=== PATIENT | female | born 1990 | race Caucasian/White ===

== ENCOUNTER 2018-03-29 15:02 | Outpatient (CLI) | payer OTHER ==
--- NOTE | 2018-03-30 02:43 | CT Report ---
Reason: LEFT LOWER QUADRANT ABD PAIN Procedure Date: 03/29/2018 Accession Number: [id number] / [id number] Procedure: CT - Abdomen/Pelvis W/O CPT Code: FULL RESULT: EXAM: CT ABDOMEN AND PELVIS (CT KUB) EXAM DATE: 03/29/2018 05:26 PM. CLINICAL HISTORY: Left lower quadrant abdominal pain. COMPARISONS: None. TECHNIQUE: Routine axial helical CT imaging was performed through the abdomen and pelvis without IV contrast. Reconstructions: Coronal and sagittal. In accordance with CT protocol optimization, one or more of the following dose reduction techniques were utilized for this exam: automated exposure control, adjustment of mA and/or KV based on patient size, or use of iterative reconstructive technique. FINDINGS: Lung Bases: Unremarkable. Right Kidney/Ureter: No stones, hydronephrosis, or hydroureter. No perinephric fat stranding. Left Kidney/Ureter: No stones, hydronephrosis, or hydroureter. No perinephric fat stranding. Other Solid Organs: Noncontrast images of the solid organs are grossly unremarkable. Gallbladder/Bile Ducts: Unremarkable. Peritoneal Cavity: No free fluid, free air or yahaira adenopathy. Bowel is grossly unremarkable post-appendectomy. Moderate stool burden is noted. Pelvic Organs: No bladder stones or wall thickening. Noncontrast images of the visualized pelvic organs are unremarkable. Vasculature: Unremarkable. Other: None. IMPRESSION: 1. No urinary tract stones or obstruction. 2. Moderate stool burden. RADIA
== END 2018-03-29 15:03 | disposition home or self-care (01) ==
LOC: DI 15:02
PROVIDERS: ATTEND Nurse Practitioner Family
DX: R10.32 Left lower quadrant pain (principal); K58.9 Irritable bowel syndrome, unspecified
CPT/HCPCS: 74176

== ENCOUNTER 2019-01-01 11:46 | Outpatient (CLI) | payer OTHER ==
--- NOTE | 2019-01-01 12:31 | SLEEP CARE CONSULTATION ---
Information from patient questionnaire entered by Krysta Moseley. I have reviewed and concur with the information entered by Krysta Moseley. This document represents the service I personally performed and the decisions made by me, Thierry Hodgson MD, [facility]. History of Present Illness Reason for Visit: New patient Chief Complaint: reports: Unrefreshed sleep, Fatigue Duration of Symptoms: SINCE 2012 Usual bedtime: 0815-1765 Time it takes to fall asleep: 30-60 MINUTES Snores at night: Yes Observed to quit breathing while asleep: Yes Sleeps alone due to snoring: No Number of times waking at night: 2-6 Reasons for waking at night: reports: Bathroom, Other (SUDDEN WAKING) Toss, Turn, or Twitch while sleeping: Yes Recalls having dreams: Yes Usually gets out of bed at: 2514-6048 Feels refreshed in the morning: No Morning headache: Yes Sleepy or fatigued during the day: Yes Ever fallen asleep while driving: Yes Takes day naps: Yes Dreams during day naps: Yes Prior sleep studies: No Additional HPI information: I had the pleasure of seeing Ms. Dasilva today regarding the possibility of her having a sleep disorder. As you know, she is a 28 year old lady who complains of persistent fatigue and unrefreshed sleep for the past 6 years. The patient tells me that she normally goes to bed around 8 - 10 pm, and it takes her approximately 30 - 60 minutes to fall asleep. She has been told that she snores loudly and irregularly at night. She has also been observed to stop breathing in her sleep. She sleeps alone. She can recall waking up on the average of 2 - 6 times during the night. Most of the time she wakes up because of having to use the bathroom. She has awakened occasionally because of her own snoring, choking, and having to gasp for air. There is a lot of tossing and turning in her sleep. She has had somniloquy (sleep talking) and somnambulism (sleep walking). Generally she can recall having dreams and nightmares. In the morning she usually gets up out of the bed around 6 - 10 a.m. not feeling refreshed nor rested. She usually does not have a morning headache. During the day she complains of feeling sleepy and fatigued. Her score on [place] Sleepiness Scale is 11 out of 24. She has fallen asleep while driving and has gone out of the ginette. She usually takes naps during the day. Upon falling asleep during the day she reports having vivid dreams. She reports having had sleep paralysis. There symptoms of restless leg syndrome. She reports having impaired concentration during the day. Subjective Initial [place] Sleepiness Scale score: 11 Past Medical History Past Medical History: reports: Fibromyalgia, Anxiety, Depression, GERD, Other (PTSD) Social History The patient's occupation is NOT EMPLOYED. Patient is Single and lives in [place]. Have you smoked in the past 12 months: No Alcohol use: Yes Alcohol amount and frequency: 1 DRINK EVERY COUPLE MONTHS Caffeine use: No Family History Family history of sleep disordered breathing: No Allergies and Home Medications Drug allergies reviewed: Yes Home medication list reviewed: Yes (Lyrica, prazosin, Nexium) Review of Systems Weight gain over past 5 years: 50+ Cardiovascular: denies: high blood pressure, palpitations, chest pain, irregular heart rate or pulse, leg or foot swelling, have to sleep sitting up, other Respiratory: denies: shortness of breath, wheeze, sputum production, chronic cough, other Gastrointestinal: reports: nausea, diarrhea, abdominal pain, other (CONSTIPATION) Urinary: reports: frequency Neurological: reports: headaches Psychiatric: reports: anxiety, depression, other (PTSD) Ear/Nose/Throat: reports: wisdom teeth removed Endocrine: denies: thyroid disease, history of goiter, sluggishness, too hot or cold, excessive thirst, increased appetite, increased urination, unexplained weakness, other Musculoskeletal: reports: joint pain, neck pain, back pain, muscle pain or cramping Immunologic: denies: sneezing, rash, itching, allergies to food or environment, other Physical Exam Vital signs obtained and entered by: Dr. Hodgson Blood Pressure: 110/70 Cuff size: long Heart Rate: 61 O2 Saturation: 99 Height: 5 ft 4 in Weight (kg): 201 lb Body Mass Index: 34.4 BMI Classification: Class 1 Neck circumference: 14 Mood/affect: normal HEENT: No craniofacial malformation Nostrils: patent to airflow Turbinates: normal Septum: midline Mouth and throat: narrow oropharynx Soft palate: long Hard palate: normal Uvula: normal Uvula visualization: 50% Mallampati Class II Tongue: enlarged in size with teeth holland on lateral edges Tonsils: small Chin and jaw: normal size and position Neck: normal w/o lymphadenopathy or thyromegaly Heart: regular rate and rhythm Lungs: clear bilaterally Abdomen: soft Extremities: no edema or clubbing Neurologic: intact Impression and Plan I had the pleasure of seeing Ms. Dasilva today regarding the possibility of her having a sleep disorder. As you know, she is a 28 year old lady who complains of persistent fatigue and unrefreshed sleep for the past 6 years. The patient tells me that she normally goes to bed around 8 - 10 pm, and it takes her approximately 30 - 60 minutes to fall asleep. She has been told that she snores loudly and irregularly at night. She has also been observed to stop breathing in her sleep. She sleeps alone. She can recall waking up on the average of 2 - 6 times during the night. Most of the time she wakes up because of having to use the bathroom. She has awakened occasionally because of her own snoring, choking, and having to gasp for air. There is a lot of tossing and turning in her sleep. She has had somniloquy (sleep talking) and somnambulism (sleep walking). Generally she can recall having dreams and nightmares. In the morning she usually gets up out of the bed around 6 - 10 a.m. not feeling refreshed nor rested. She usually does not have a morning headache. During the day she complains of feeling sleepy and fatigued. Her score on Hudson Sleepiness Scale is 11 out of 24. She has fallen asleep while driving and has gone out of the ginette. She usually takes naps during the day. Upon falling asleep during the day she reports having vivid dreams. She reports having had sleep paralysis. There symptoms of restless leg syndrome. She reports having impaired concentration during the day. I spent 100% of this 15 minute visit face to face with the patient with greater than 50% of this was spent time counseling the patient and coordination of care.
[2019-01-01 12:32] VITALS: BP 110/70
== END 2019-01-01 11:47 | disposition home or self-care (01) ==
LOC: SC 11:46
PROVIDERS: ATTEND Internal Medicine Pulmonary Disease
DX: R53.83 Other fatigue (principal); G47.8 Other sleep disorders; R06.83 Snoring; R06.81 Apnea, not elsewhere classified; F51.3 Sleepwalking [somnambulism]
CPT/HCPCS: 99203; 99212

== ENCOUNTER 2019-01-18 19:21 | Outpatient (CLI) | payer OTHER | END 2019-01-18 19:22 | disposition home or self-care (01) | LOC: SC 19:21 | PROVIDERS: ATTEND Internal Medicine Pulmonary Disease | DX: G47.10 Hypersomnia, unspecified (principal); E66.9 Obesity, unspecified; Z68.34 Body mass index [BMI] 34.0-34.9, adult | CPT/HCPCS: 95810 ==

== ENCOUNTER 2019-02-20 10:43 | Outpatient (CLI) | payer OTHER ==
[2019-02-20 11:52] VITALS: BP 108/70
--- NOTE | 2019-02-20 11:53 | SLEEP CARE CONSULTATION ---
Information from patient questionnaire entered by Krysta Moseley. I have reviewed and concur with the information entered by Krysta Moseley. This document represents the service I personally performed and the decisions made by me, Khushbu Cat RN, MSN, [employer]. History of Present Illness Initial [place] Sleepiness Scale score: 11 Current [place] Sleepiness Scale score: 14 Additional HPI information: KYAW GUERRA returns for follow up of the recently performed polysomnography and findings.I explained the pathophysiology behind obstructive sleep apnea. Patient does not have sleep apnea and was advised how weight gain could increase the risk of developing sleep apnea in the future. I strongly encouraged the patient to lose weight. Patient works diligently in tracking food intake and regular exercise. Weight has been difficult to lose since started antidepress ants. Patient has rare to mild snoring. Snoring can be reduced by weight loss and patient is working on this. Weight loss is best achieved with diet consult and she has done this. Snoring can also be treated with an oral appliance from a dentist. She has tried and was not effective. In addition, an ENT evaluation can be done to see if other treatment is indicated. She reports intermittent loud snoring for unknown reason. Patient counseled not drink alcohol less than 4 hours before bedtime as it can increase snoring and apnea. Patient does not drink alcohol. Patient was cautioned about risks of drowsy driving until sleepiness symptoms resolve. Patient denies drowsy driving. [facility] patient education on snoring and sleep apnea given and reviewed. Sleep Study - Polysomnography Polysomnography findings: The quality of the study is good. The patient had slightly reduced sleep efficiency due to a prolonged awakening in the middle of the night. The sleep architecture was normal. Respiratory monitoring showed no significant sleep disordered breathing (AHI = 1.2) or hypoxia (shira oxygen saturation of 81% but only 0.3% to the total sleep time was spent with oxygen saturation below 90%). The patient slept adequately in supine position (supine AHI = 1.6; non-supine = 0.40). Snore was rare and light in intensity. There was no significant periodic leg movement of sleep. Cardiac rhythm was normal sinus rhythm without significant arrhythmia. No abnormal behavior (parasomnia) observed during the night. Allergies and Home Medications Known drug allergies: Yes (Zyrtec) Home medication list reviewed: Yes Allergy and home medication list: venafaxine bid Pregablin bid unknown dose - advised to keep this information behind ID for emergency. Review of Systems Review of systems same as previous: Yes Physical Exam Blood Pressure: 108/70 Cuff size: regular Heart Rate: 56 O2 Saturation: 99 Height: 5 ft 4 in Weight: 200 lb Body Mass Index: 34.3 BMI Classification: Obesity Class 1 Impression and Plan 1 Snoring, rare and mild, but no significant sleep disordered breathing. She was informed of methods to reduce snoring. She is working on weight loss and seen a transfer knitter. She reports this has been a struggle to achieve her weight loss goals since starting antidepressants . She was also advised that significant weight gain could increase her risk of developing apnea in the future. She has tried oral appliance for snoring but ineffective. If she continues to wake to snoring, she was advised to follow up with PCP to consider an ENT evaluation. 2. Fatigue and hypersomnolence. Review of her initial sleep history showed a variance of a 2-3 hours and advised how her sleep schedule could contribut to fatigue. Since then she has strived to keep a regular sleep schedule and obtain sufficient sleep and still reports fatigue and excessive daytime sleepiness. Thus she is advised to follow up with her PCP for further evaluation. Until then she is to continue regular wake time, relaxing ritual before bed and go to bed only when sleepy with a goal of getting 7-8 hours of sleep. [facility] Howto sleep better given and discussed for reference * Continue regular sleep schedule * Attempt to lose weight * Avoid alcohol consumption near bedtime * The patient is cautioned about driving until sleepiness is completely resolved. * Follow up with PCP for further evaluation of fatigue / hypersomnolence. . I spent 100% of this 35 minute visit face to face with the patient with greater than 50% of this was spent time counseling the patient and coordination of care.
== END 2019-02-20 10:44 | disposition home or self-care (01) ==
LOC: SC 10:43
PROVIDERS: ATTEND Nurse Practitioner Family
DX: R06.83 Snoring (principal); R53.83 Other fatigue; G47.10 Hypersomnia, unspecified; E66.9 Obesity, unspecified; Z68.34 Body mass index [BMI] 34.0-34.9, adult
CPT/HCPCS: 99212; 99214